=== PATIENT | female | born 1960 | race Caucasian/White ===

== ENCOUNTER 2024-11-20 15:38 | Inpatient (IN) | payer BC ==
[~2024-11-20] VITALS: Ht 170.2 cm; Wt 77.1 kg
[2024-11-20] VITALS (7 sets, daily range): BP systolic 132–145; BP diastolic 76–107; PULSE 71–77; RESP 15–22; TEMP 37.1964–37.2; O2SAT 96–99
[2024-11-20 16:26] LABS: BASOPHILS % 1.1 % (0.0-2.0); EOSINOPHILS % 0.8 % (0.0-5.0); HEMATOCRIT. 40.9 % (36.0-48.0); HEMOGLOBIN. 13.6 g/dL (12.0-16.0); LYMPHOCYTES % 13.7 % (20.0-50.0); MEAN PLATELET VOLUME 8.1 fl (7.4-10.4); MONOCYTES % 5.1 % (2.0-8.0); NEUTROPHILS % 79.3 % (40.0-76.0); PLATELET 240 x1000/uL (130-400); RED BLOOD CELL COUNT 4.48 mill/uL (4.2-5.4); RED CELL DISTRIBUTION WIDTH 14.8 % (11.6-14.6)
[2024-11-20 16:49] LABS: CREATININE 0.9 mg/dL (0.6-1.0); TROPONIN I HIGH SENSITIVITY 5 ng/L (3.0-34); UREA NITROGEN BLOOD 12 mg/dL (9-23)
[2024-11-20 16:51] LABS: ASPARTATE AMINOTRANSFERASE 54 IU/L (<34); BILIRUBIN DIRECT 0.1 mg/dL (<=3.0); BILIRUBIN TOTAL 0.5 mg/dL (0.1-1.0); PROTEIN TOTAL 6.6 g/dL (6.0-8.3)
[2024-11-20 17:08] LABS: *AMPHETAMINES SCREEN URINE NEGATIVE (NEGATIVE); *BARBITURATES SCREEN URINE NEGATIVE (NEGATIVE); *BENZODIAZEPINES SCREEN URINE NEGATIVE (NEGATIVE); *COCAINE SCREEN URINE NEGATIVE (NEGATIVE); METHADONE URINE SCREEN NEGATIVE (NEGATIVE); OPIATES URINE SCREEN NEGATIVE (NEGATIVE); PHENCYCLIDINE URINE SCREEN NEGATIVE (NEGATIVE)
[2024-11-20 17:09] LABS: CANNABINOID URINE SCREEN PRESUMPTIVE POSITIVE (NEGATIVE); ECSTASY MDMA SCREEN URINE NEGATIVE (NEGATIVE)
[2024-11-20] MEDS ORDERED: LEVETIRACETAM 1,000MG in NACL 100ML PREMIX IV STA (18:09)
[2024-11-20] MEDS ORDERED: LORAZEPAM 2MG/ML UD SYRINGE IV SCH (18:30)
[2024-11-20] MEDS: LORAZEPAM 2MG/ML UD SYRINGE ONE (18:53)
[2024-11-20] MEDS: LEVETIRACETAM 1000MG PREMIX 100 ML IV SCH (18:56)
[2024-11-20 19:12] LABS: TROPONIN I HIGH SENSITIVITY 19 ng/L (3.0-34)
[2024-11-20 19:29] LABS: INR 1.0
[2024-11-20] MEDS: LEVETIRACETAM 500MG PREMIX 100 ML IV SCH (22:12)
[2024-11-20] MEDS: DEXT 5%/LACTATED RINGERS 1,000 ML IV SCH (22:16)
[2024-11-21] VITALS (79 sets, daily range): BP systolic 103–145; BP diastolic 50–88; PULSE 62–89; RESP 9–23; TEMP 36.4–37.1; O2SAT 93–100
[2024-11-21] MEDS: DEXAMETHASONE 4MG/ML 1ML VIAL IV SCH (00:24)
[2024-11-21] MEDS ORDERED: LORAZEPAM 2MG/ML UD SYRINGE IV PRN (00:30)
[2024-11-21] MEDS: ONDANSETRON HCL 4MG/2ML INJ IV PRN (02:25)
[2024-11-21] MEDS ORDERED: ASPI-1160 PO (05:18)
[2024-11-21] MEDS: PANTOPRAZOLE SODIUM 40 MG/VIAL IV SCH (08:29)
[2024-11-21] MEDS ORDERED: GADOTERATE MEGLUMINE 5 MMOL/10 ML VIAL IV ONE (14:32)
[2024-11-21] MEDS ORDERED: LEVE100034 IV (16:49)
[2024-11-21] MEDS ORDERED: LORA2VIA34 (16:49)
[2024-11-22] VITALS: BP 131/74; PULSE 67; RESP 18; TEMP 36.6; O2SAT 98
[2024-11-22 04:00] VITALS: BP 145/81; PULSE 72; RESP 20; TEMP 36.6; O2SAT 99
[2024-11-22 08:00] VITALS: BP 120/68; PULSE 76; RESP 18; TEMP 35.6; O2SAT 99
[2024-11-22 12:00] VITALS: BP 122/77; PULSE 60; RESP 18; TEMP 35.6; O2SAT 98
[2024-11-22 15:57] VITALS: BP 127/77; PULSE 60; RESP 18; TEMP 96.1
[2024-11-22] MEDS ORDERED: PANTOPRAZOLE 40MG DR TABLET PO SCH (21:00)
== END 2024-11-22 16:25 | disposition short-term general hospital (02) | DRG 100 ==
LOC: ER 15:38 → MICUSO 20:12 → EDBEDREQ 20:15 → EDBEDREQSVC 20:15 → EDBEDREQTM 20:15 → ENRESERV 20:40 → 7WST 11-21 20:03
PROVIDERS: ADMIT Internal Medicine; ATTEND Internal Medicine
DX: R56.9 Unspecified convulsions (principal); G93.41 Metabolic encephalopathy; I48.91 Unspecified atrial fibrillation; D32.0 Benign neoplasm of cerebral meninges; I50.9 Heart failure, unspecified; Z79.899 Other long term (current) drug therapy
CPT/HCPCS: 36415; 70553; 71045; 80048; 80076; 80305; 80320; 83735; 84484; 85025; 93005; 96365; 96375; 99291; A9577; J1100; J1953; J2060; J2405; J2470; G0480